=== PATIENT | male | born 1985 | race Caucasian/White ===

== ENCOUNTER 2019-09-06 18:11 | Emergency (ER) | payer SELFPAY ==
--- NOTE | 2019-09-06 18:21 | Event Note ---
ED Screening Note ED Screening Note: ABD PAIN FOR DAYS CHILLS NO FEVER NO DYSURIA POOR INFORMANT MOTHER ALSO POOR INFORMANT This initial assessment/diagnostic orders/clinical plan/treatment(s) is/are subject to change based on patients health status, clinical progression and re- assessment by fellow clinical providers in the ED. Further treatment and workup at subsequent clinical providers discretion. Patient/guardian urged not to elope from the ED as their condition may be serious if not clinically assessed and managed. Initial orders include: LABS/URINE
--- NOTE | 2019-09-06 19:02 | XRay Report ---
CHEST 2 VIEWS INDICATION / CLINICAL INFORMATION: PAIN. COMPARISON: None available. FINDINGS: SUPPORT DEVICES: None. HEART / MEDIASTINUM: No significant abnormality. LUNGS / PLEURA: No significant pulmonary or pleural abnormality. No pneumothorax. ADDITIONAL FINDINGS: No significant additional findings. IMPRESSION: 1. No acute findings. Signer Name: Dayton Perez MD Signed: 09/06/2019 6:57 PM Workstation Name: [id number]
[2019-09-06 19:15] LABS: Basophils % (Auto) 0.9 % (0.0-1.8); Eosinophils # (Auto) 0.2 K/mm3 (0.0-0.4); Eosinophils % (Auto) 3.4 % (0.0-4.3); Lymphocytes # (Auto) 1.8 K/mm3 (1.2-5.4); Mean Corpuscular HGB Conc 37 % (32-34); Mean Corpuscular Volume 93 fl (84-94); Monocytes # (Auto) 0.6 K/mm3 (0.0-0.8); Monocytes % (Auto) 12.3 % (0.0-7.3); Platelet Count 337 K/mm3 (140-440); Red Blood Count 4.15 M/mm3 (3.65-5.03); Red Cell Distribution Width 13.3 % (13.2-15.2)
[2019-09-06 19:16] LABS: Hematocrit 38.7 % (35.5-45.6); Hemoglobin 14.2 gm/dl (11.8-15.2)
[2019-09-06 19:41] LABS: Alanine Aminotransferase 22 units/L (7-56); Albumin 4.4 g/dL (3.9-5); BUN/Creatinine Ratio 14; Blood Urea Nitrogen 13 mg/dL (9-20); Calcium 9.9 mg/dL (8.4-10.2); Hemolysis Index 6
[2019-09-06] MEDS ORDERED: SODIUM CHLORIDE 0.9% 1000 ML 1,000 ML IV ONE (19:45)
[2019-09-06] MEDS ORDERED: ONDANSETRON 4 MG/2 ML INJ IV ONE ×2 (19:45→23:08)
[2019-09-06] MEDS ORDERED: KETOROLAC 30 MG/1 ML INJ IV ONE (19:45)
[2019-09-06] MEDS ORDERED: FAMOTIDINE 20 MG/2 ML INJ IV ONE (19:49)
[2019-09-06] MEDS ORDERED: MORPHINE 2 MG/1 ML INJ IV ONE (19:49)
--- NOTE | 2019-09-06 20:51 | Ultrasound Report ---
ULTRASOUND ABDOMEN, LIMITED (RIGHT UPPER QUADRANT) INDICATION: RUG pain. COMPARISON: None available. FINDINGS: Pancreas: Visualized portion shows no significant abnormality. Liver: Normal. Gallbladder: Normal. Bile ducts: Normal. Common Bile Duct measures 2.7 mm. Free fluid: None. Additional Findings: None. IMPRESSION: 1. No sonographic abnormality of the right upper quadrant. Signer Name: Godwin Ibarra MD Signed: 09/06/2019 8:47 PM Workstation Name: [id number]
--- NOTE | 2019-09-06 21:26 | Cat Scan Report ---
CT abdomen pelvis wo con INDICATION / CLINICAL INFORMATION: right flank pain. TECHNIQUE: All CT scans at this location are performed using CT dose reduction for ALARA by means of automated e xposure control. COMPARISON: None available. FINDINGS: Limited lower thoracic images demonstrate no acute disease. ABDOMEN: The gallbladder, liver, spleen and pancreas are normal. Right intrarenal calcification. No evidence of hydronephrosis or ureteral stones. Kidneys are otherwise normal. Adrenal glands are normal. No retroperitoneal adenopathy. Small bowel appearance is within normal limits. Pelvis: The appendix is normal urinary bladder wall is diffusely thickened. Multiple subcutaneous calcifications are identified in the penis Skeletal structures are unremarkable. IMPRESSION: 1. Right nephrolithiasis without hydronephrosis. 2. Generalized urinary bladder wall thickening. 3. Multiple subcutaneous penile calcifications, the nature is uncertain. Signer Name: Dayton Perez MD Signed: 09/06/2019 9:21 PM Workstation Name: [id number]
[2019-09-06] MEDS ORDERED: cefTRIAXone/NS 1 GM/50 ML 1 GM/50 ML BAG IV ONE (21:37)
[2019-09-06 23:01] LABS: Bacteria,Urine 2+ /HPF (Negative); Bilirubin,Urine NEG (Negative); Blood,Urine NEG (Negative); Color,Urine Amber (Yellow); Mucus,Urine 2+ /HPF; Protein,Urine <15 mg/dL mg/dL (Negative)
[2019-09-06 23:06] LABS: WBC,Urine > 182.0 /HPF (0.0-6.0)
[2019-09-06] MEDS ORDERED: oxyCODONE /ACETAMINOPHEN 5-325MG TAB PO ONE (23:08)
--- NOTE | 2019-09-06 23:14 | Emergency Department Report ---
ED Abdominal Pain HPI - General Chief Complaint: Abdominal Pain Stated Complaint: ABD PAIN/LEG NUMBNESS Time Seen by Provider: 09/06/19 18:20 Source: patient, family Mode of arrival: Ambulatory Limitations: No Limitations - History of Present Illness Initial Comments: Patient is a 33-year-old male with no past medical history presents to the ED with concern of acute onset persistent severe right flank pain that radiates to the right upper quadrant with nausea and vomiting for the last 3 days. Patient states that in the last 12 hours the patient has been most severe, more constant and worsening. Patient denies shortness of breath, chest pain, fever, chills, cough, diarrhea, hematuria, testicular pain, particularly injury, fall, heavy lifting, low back pain, dizziness, neck pain or syncope and headache. MD Complaint: abdominal pain, flank pain (right), other (nausea and vomiting) -: Sudden, days(s) (3) Location: R flank Radiation: RUQ, R flank Migration to: no migration Severity: severe Severity scale (0 -10): 10 Quality: stabbing, sharp Consistency: constant, colicky Improves With: nothing Worsens With: nothing Associated Symptoms: denies other symptoms, nausea, vomiting. denies: diarrhea, fever, chills, dysuria, hematemesis, hematochezia, melena, hematuria, anorexia, other - Related Data Previous Rx's Medication Instructions Recorded Last Taken Type Ciprofloxacin HCl [Ciprofloxacin 500 mg PO Q12HR #40 tab 09/06/19 Unknown Rx TAB] Ketorolac [Toradol] 10 mg PO Q8H PRN #20 tablet 09/06/19 Unknown Rx Ondansetron [Zofran Odt] 4 mg PO Q6HR PRN #20 tab.rapdis 09/06/19 Unknown Rx Tamsulosin [Flomax] 0.4 mg PO QDAY #10 cap 09/06/19 Unknown Rx oxyCODONE /ACETAMINOPHEN [Percocet 1 tab PO Q6HR PRN #10 tablet 09/06/19 Unknown Rx 5/325] Allergies Allergy/AdvReac Type Severity Reaction Status Date / Time No Known Allergies Allergy Unverified 09/06/19 18:19 ED Review of Systems ROS: Stated complaint: ABD PAIN/LEG NUMBNESS Other details as noted in HPI Constitutional: denies: chills, fever Eyes: denies: eye pain, eye discharge, vision change ENT: denies: ear pain, throat pain Respiratory: denies: cough, shortness of breath, wheezing Cardiovascular: denies: chest pain, palpitations Endocrine: no symptoms reported Gastrointestinal: abdominal pain (right flank pain), vomiting. denies: nausea, diarrhea Genitourinary: denies: urgency, dysuria, frequency, hematuria, testicular pain, testicular mass Musculoskeletal: denies: back pain, joint swelling, arthralgia Skin: denies: rash, lesions Neurological: denies: headache, weakness, paresthesias Psychiatric: denies: anxiety, depression Hematological/Lymphatic: denies: easy bleeding, easy bruising ED Past Medical Hx - Past Medical History Previous Medical History?: No - Surgical History Past Surgical History?: No - Social History Smoking Status: Never Smoker - Medications Home Medications: Home Medications Medication Instructions Recorded Confirmed Last Taken Type Ciprofloxacin HCl [Ciprofloxacin 500 mg PO Q12HR #40 tab 09/06/19 Unknown Rx TAB] Ketorolac [Toradol] 10 mg PO Q8H PRN #20 tablet 09/06/19 Unknown Rx Ondansetron [Zofran Odt] 4 mg PO Q6HR PRN #20 tab.rapdis 09/06/19 Unknown Rx Tamsulosin [Flomax] 0.4 mg PO QDAY #10 cap 09/06/19 Unknown Rx oxyCODONE /ACETAMINOPHEN [Percocet 1 tab PO Q6HR PRN #10 tablet 09/06/19 Unknown Rx 5/325] ED Physical Exam - General Limitations: No Limitations General appearance: alert, in no apparent distress - Head Head exam: Present: atraumatic, normocephalic, normal inspection - Eye Eye exam: Present: normal appearance, PERRL, EOMI Pupils: Present: normal accommodation - ENT ENT exam: Present: normal exam, normal orophraynx, mucous membranes moist, TM's normal bilaterally, normal external ear exam - Neck Neck exam: Present: normal inspection, full ROM. Absent: tenderness - Respiratory Respiratory exam: Present: normal lung sounds bilaterally. Absent: respiratory distress, wheezes, rales, rhonchi, chest wall tenderness, accessory muscle use, decreased breath sounds, prolonged expiratory - Cardiovascular Cardiovascular Exam: Present: regular rate, normal rhythm, normal heart sounds. Absent: systolic murmur, diastolic murmur, rubs, gallop - GI/Abdominal GI/Abdominal exam: Present: soft, tenderness (palpable severe right flank tenderness), normal bowel sounds. Absent: guarding, rebound, hyperactive bowel sounds, hypoactive bowel sounds - Extremities Exam Extremities exam: Present: normal inspection, full ROM, normal capillary refill - Back Exam Back exam: Present: normal inspection, full ROM. Absent: tenderness, muscle spasm, paraspinal tenderness - Neurological Exam Neurological exam: Present: alert, oriented X3, CN II-XII intact, normal gait, reflexes normal - Psychiatric Psychiatric exam: Present: normal affect, normal mood, anxious - Skin Skin exam: Present: warm, dry, intact, normal color. Absent: rash ED Course Vital Signs 09/06/19 18:21 Temperature 97.9 F Pulse Rate 100 H Respiratory 18 Rate Blood Pressure 101/66 [Left] O2 Sat by Pulse 98 Oximetry ED Medical Decision Making - Lab Data Result diagrams: 09/06/19 18:38 09/06/19 18:38 - Radiology Data Radiology results: report reviewed, [place] [address] Cat Scan Report Signed Patient: MARICARMEN ANDERSON MR#: [id number] 220 : 1985 Acct:[id number] Age/Sex: 33 / M ADM Date: 09/06/19 Loc: ED Attending Dr: Ordering Physician: LOWELL LIN Date of Service: 09/06/19 Procedure(s): CT abdomen pelvis wo con Accession Number(s): [id number] cc: LOWELL LIN CT abdomen pelvis wo con INDICATION / CLINICAL INFORMATION: right flank pain. TECHNIQUE: All CT scans at this location are performed using CT dose reduction for ALARA by means of automated exposure control. COMPARISON: None available. FINDINGS: Limited lower thoracic images demonstrate no acute disease. ABDOMEN: The gallbladder, liver, spleen and pancreas are normal. Right intrarenal calcification. No evidence of hydronephrosis or ureteral stones. Kidneys are otherwise normal. Adrenal glands are normal. No retroperitoneal adenopathy. Small bowel appearance is within normal limits. Pelvis: The appendix is normal urinary bladder wall is diffusely thickened. Multiple subcutaneous calcifications are identified in the penis Skeletal structures are unremarkable. IMPRESSION: 1. Right nephrolithiasis without hydronephrosis. 2. Generalized urinary bladder wall thickening. 3. Multiple subcutaneous penile calcifications, the nature is uncertain. Signer Name: Dayton Perez MD Signed: 09/06/2019 9:21 PM Workstation Name: [id number] Transcribed By: HEBERT Dictated By: Dayton Perez MD Electronically Authenticated By: Dayton Perez MD Signed Date/Time: 09/06/192120 DD/ 15 TD/TT: Findings [address] [address] Ultrasound Report Signed Patient: MARICARMEN ANDERSON MR#: [id number] 220 : 1985 Acct:[id number] Age/Sex: 33 / M ADM Date: 09/06/19 Loc: ED Attending Dr: Ordering Physician: LOWELL LIN Date of Service: 09/06/19 Procedure(s): US abdomen limited Accession Number(s): [id number] cc: LOWELL LIN ULTRASOUND ABDOMEN, LIMITED (RIGHT UPPER QUADRANT) INDICATION: RUG pain. COMPARISON: None available. FINDINGS: Pancreas: Visualized portion shows no significant abnormality. Liver: Normal. Gallbladder: Normal. Bile ducts: Normal. Common Bile Duct measures 2.7 mm. Free fluid: None. Additional Findings: None. IMPRESSION: 1. No sonographic abnormality of the right upper quadrant. Signer Name: Godwin Ibarra MD Signed: 09/06/2019 8:47 PM Workstation Name: [id number] Transcribed By: Dictated By: Godwin Ibarra MD Electronically Authenticated By: Godwin Ibarra MD Signed Date/Time: 09/06/192046 DD/ 45 Findings [facility] [address] [place] [address] XRay Report Signed Patient: MARICARMEN ANDERSON MR#: [id number] 220 : 1985 Acct:[id number] Age/Sex: 33 / M ADM Date: 09/06/19 Loc: ED Attending Dr: Ordering Physician: CARISSA JACKSON Date of Service: 09/06/19 Procedure(s): XR chest routine 2V Accession Number(s): [id number] cc: CARISSA JACKSON Fluoro Time In Minutes: CHEST 2 VIEWS INDICATION / CLINICAL INFORMATION: PAIN. COMPARISON: None available. FINDINGS: SUPPORT DEVICES: None. HEART / MEDIASTINUM: No significant abnormality. LUNGS / PLEURA: No significant pulmonary or pleural abnormality. No pneumoth orax. ADDITIONAL FINDINGS: No significant additional findings. IMPRESSION: 1. No acute findings. Signer Name: Dayton Perez MD Signed: 09/06/2019 6:57 PM Workstation Name: [id number] Transcribed By: [place] Dictated By: Dayton Perez MD Electronically Authenticated By: Dayton Perez MD Signed Date/Time: 09/06/191856 DD/ 56 TD/TT: - Medical Decision Making This is a 33-year-old male who presented to the ED with acute onset severe right flank pain that radiates to the right upper quadrant with nausea and vomiting. In the ED, patient is alert and oriented 3 and is not in distress but appears to be in significant pain. Patient was treated for pain and also for nausea and vomiting in the ED. Patient was also given normal saline 1 L IV bolus. Lab test results are reviewed and are all nonactionable except for a urinalysis that showed significant urinary tract infection with positive nitrite and > 182 WBCs. Patient also received Rocephin 1 g IV 1. Chest x-ray shows no acute cardiopulmonary abnormalities or pneumonitis. Right upper quadrant ultrasound showed no sonographic evidence of gallbladder disease or gallstones. Abdomen pelvis CT scan without contrast showed right nephrolithiasis without hydronephrosis, generalized urinary bladder wall thickening and multiple subcutaneous penile calcifications, the nature is unce rtain. On reevaluation, patient's pain resolved as well as nausea and vomiting. Patient was discharged home on medications including Flomax, oral antibiotics and pain medications and was given referral to the urologist Dr. Rodriguez, for follow-up as needed. Patient was advised to return to the ED immediately if symptoms get worse. - Differential Diagnosis Kidney stones; Cystitis; Gallstones; UTI; GERD; Muscle spasm Critical care attestation.: If time is entered above; I have spent that time in minutes in the direct care of this critically ill patient, excluding procedure time. ED Disposition Clinical Impression: Acute abdominal pain in right flank, Kidney stone on right side, Nausea and vomiting in adult, Acute urinary tract infection Disposition: DC-01 TO HOME OR SELFCARE Is pt being admited?: No Does the pt Need Aspirin: No Condition: Stable Instructions: Kidney Stones (ED), Urinary Tract Infection in Men (ED), Flank Pain (ED), Acute Nausea and Vomiting (ED) Additional Instructions: Take medications with food, drink plenty of fluids and follow-up with her primary care physician in 7-10 days for reevaluation. Consider following up with the urologist Dr. Rodriguez, and as needed. Return to the ED immediately if symptoms get worse. Prescriptions: Ciprofloxacin HCl [Ciprofloxacin TAB] 500 mg PO Q12HR #40 tab Tamsulosin [Flomax] 0.4 mg PO QDAY #10 cap oxyCODONE /ACETAMINOPHEN [Percocet 5/325] 1 tab PO Q6HR PRN #10 tablet PRN Reason: Pain Ketorolac [Toradol] 10 mg PO Q8H PRN #20 tablet PRN Reason: Pain Ondansetron [Zofran Odt] 4 mg PO Q6HR PRN #20 tab.rapdis PRN Reason: Nausea Referrals: JENNY ZACARIAS MD [Staff Physician] - 7-10 days HARSHA RODRIGUEZ MD [Staff Physician] - as needed Time of Disposition: 23:24 Print Language: STATELESS
[2019-09-06] MEDS ORDERED: TAMSULOSIN 0.4 MG CAP PO ONE (23:28)
[2019-09-07] VITALS: BP 117/73
== END 2019-09-07 00:01 | disposition home or self-care (01) ==
LOC: ED 18:11
DX: N39.0 Urinary tract infection, site not specified (principal); N20.0 Calculus of kidney; R11.2 Nausea with vomiting, unspecified; Z79.899 Other long term (current) drug therapy
CPT/HCPCS: 36415; 71046; 74176; 76705; 80053; 81001; 83690; 85025; 96361; 96365; 96375; 99284; J0696; J1885; J2270; J2405; J7030